=== PATIENT | male | born 1975 | race Caucasian/White ===

== ENCOUNTER 2024-10-01 16:58 | Inpatient (IN) | payer OTHER, SELFPAY ==
[2024-10-01] VITALS (7 sets, daily range): BP systolic 131–158; BP diastolic 82–101; PULSE 69–101; RESP 14–16; TEMP 36.1; O2SAT 97–100; BMI 21.1
--- NOTE | 2024-10-01 18:05 | CT_ITS ---
STUDY: CT ABDOMEN AND PELVIS WITH CONTRAST REASON FOR EXAM: Male, 49 years old. Abdominal pain. History of colon cancer and pancreatic cancer with the recent bile duct stent. RADIATION DOSAGE (If Supplied By Facility): CTDIvol = ( 10.98 ) mGy, DLP = ( 667.90 ) mGycm TECHNIQUE: Transaxial images were obtained from the dome of the diaphragm to the symphysis pubis without oral contrast. IV 100mL Isovue-370 was administered. Sagittal and coronal images were reconstructed. Individualized dose optimization techniques were used for this CT. COMPARISON: None. FINDINGS: The visualized lung bases are unremarkable. The visualized portions of the heart are within normal limits. Normal shape and size of the liver. Tiny amounts of intrabiliary air related to the common bile duct stent which is in grossly satisfactory position and terminating in the proximal duodenum. Gallbladder is distended and filled with high density material from previous contrast administration. Abnormal ill-defined low-attenuation mass of the head of the pancreas measuring as much as 5.1 x 5.0 x 4.4 cm. Normal spleen. Normal bilateral adrenal glands. Normal right kidney. Normal left kidney. Evaluation of the GI tract is limited by absence of oral contrast. Cannot exclude stomach wall thickening. Diffuse fluid distention of the small bowel. Measuring as much as 5.6 cm across. Findings are consistent with small bowel obstruction related to what appears to be amorphous, slightly stellate probably locally infiltrating soft tissue mass directly at the level of the ileocecal valve. This is very difficult to measure but is approximately 4.5 x 5.7 x 4.3 cm across and suspicious for malignancy of the cecum directly at the ileocecal valve. Correlate with colonoscopy. Appendix is not seen. Normal abdominal aorta. Normal inferior vena cava. Normal retroperitoneum. Normal urinary bladder. Normal abdominal wall. Normal osseous structures. 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 Additional probable 5.1 cm mass of the pancreatic head. Common bile duct stent in grossly satisfactory position. Electronically Signed: Rashad Walls MD at 19:32 EDT ,
--- NOTE | 2024-10-01 18:06 | EDS_ITS ---
HPI HPI - GI History of Present Illness Chief Complaint: Abd Pain Informant: patient Abdominal Pain/Flank Pain Onset: Today Context: Gradual Onset Timing: Continuous Quality: Cramping Location: Diffuse Worsened by: Nothing Relieved by: Nothing Nausea/Vomiting/Emesis GI Symptom: Positive for Nausea and Vomiting Quality: Positive for Nonbilious; Negative for Blood streaks, Coffee ground or Hematemesis Diarrhea/Melena/Hematochezia GI Symptom: Negative for Diarrhea, Melena or Hematochezia Associated Symptoms Associated Symptoms: Negative for Dysuria, Frequency or Hematuria Narrative Narrative: Patient presents with abdominal pain that began today. Patient states it is g radually gotten worse throughout the day. Patient states that when he woke up he was feeling okay. Patient states he ate a breakfast sandwich. Patient states he had a bowel movement this morning. Patient states that he has not had a bowel movement since that time. Patient states that recently he has had several about once per day for the past few weeks. Patient states his pain is diffuse and cramping. Patient admits to some nausea and vomiting. Patient denies any hematemesis or coffee-ground emesis. Patient denies any biliary emesis. Patient denies any diarrhea, melena, or hematochezia. Patient denies any dysuria, frequency, or hematuria. Patient had a recent stent placed in his biliary duct because of pancreatic cancer. Patient contacted his oncologist, Dr. Cano who referred him to the emergency department for possible bowel obstruction or migration of the biliary stent. [facility] Medical History Pancreatic cancer Colon cancer Home Medications ?Medication ?Instructions ?Recorded ?Last Taken ?Type [id number] 2 cap PO TID 10/01/24 Unknown History 36,000-114,000-180,000 unit capsule,delay rel (Creon) Allergy/AdvReac Type Severity Reaction Status Date / Time No Known Allergies Allergy Verified 10/01/24 16:59 Social History Smoking Status: Unknown if ever smoked ROS ROS ED Constitutional Constitutional ED: Denies chills or fever(s) Eyes Eyes: Denies blurry vision or change in vision ENT ENT ED: Denies rhinorrhea or sore throat Cardiovascular Cardiovascular: Denies chest pain or palpitations Respiratory/Chest Respiratory/Chest: Denies cough or dyspnea Gastrointestinal Gastrointestinal: Reports abdominal pain, nausea and vomiting; Denies diarrhea Genitourinary Genitourinary ED: Denies dysuria or hematuria Musculoskeletal Musculoskeletal: Denies back pain or neck pain Integumentary Denies abscess or rash Neurologic Neurologic: Denies headache(s) or weakness Allergic/Immunologic Allergic/Immunologic ED: Denies mouth swelling or urticaria EXAM Physical Exam Const Vital Signs: 10/01/24 16:59 10/01/24 18:15 10/01/24 19:08 Temperature 96.9 F L Temperature Source Temporal Pulse Rate 101 H 76 80 Respiratory Rate 16 14 16 Blood Pressure 152/91 H 141/96 H 158/92 H Blood Pressure Mean 111 111 114 Pulse Ox 99 97 100 Oxygen Delivery Method Room Air Room Air 10/01/24 19:54 10/01/24 20:56 10/01/24 21:51 Temperature Temperature Source Pulse Rate 85 78 85 Respiratory Rate 16 15 16 Blood Pressure 158/82 H 148/101 H 145/95 H Blood Pressure Mean 107 116 111 Pulse Ox 97 98 98 Oxygen Delivery Method Room Air Room Air Room Air 10/01/24 22:57 Temperature Temperature Source Pulse Rate 69 Respiratory Rate 16 Blood Pressure 131/88 H Blood Pressure Mean 102 Pulse Ox 98 Oxygen Delivery Method Room Air Positive well nourished and well developed General Appearance ED: well developed and NAD HEENT Reports moist mucous membranes normocephalic Eyes General Eye ED: Yes scleral icterus Neck supple and no JVD Resp normal respiratory effort and clear to auscultation bilaterally Cardio regular rate and regular rhythm GI Auscultation: hypoactive bowel sounds Palpation: soft and tender epigastric, LLQ, RLQ, LUQ, RUQ and suprapubic; Negative for guarding or rebound tenderness present Neuro CN's II-XII intact bilaterally, moves all extremities and no sensory deficits noted Sensorium / Orientation: alert Motor Exam: strength 5/5 throughout Psych mental status grossly normal and thought process normal MDM MDM MDM Narrative Medical decision making narrative: Differential diagnosis includes bowel obstruction, perforation, biliary obstruction, gastroenteritis, urinary tract infection, and pyelonephritis. CBC will be obtained to assess for leukocytosis and anemia. Comprehensive metabolic profile will be obtained to assess for hepatic function, renal function, and electrolyte abnormality. Lipase will be obtained to assess for pancreatitis. Serum lactate will be obtained to assess for sepsis. CT scan of the abdomen pelvis will be obtained to assess for bowel obstruction and perforation. Lab Data Attestation: I reviewed the patient's lab results. Lab results narrative: CBC was reviewed. White blood cell count was 18.0. Platelets were slightly elevated at 490. Comprehensive metabolic profile was reviewed. Total bilirubin was 2.8. Alkaline phosphatase was 204 and glucose was slightly elevated at 132. The remainder was essentially within normal limits. Lipase was reviewed and was less than 10. Labs: Laboratory Results - last 24 hr 10/01/24 10/01/24 17:40 18:55 WBC 18.0 H RBC 5.13 Hgb 14.7 Hct 44.9 MCV 87.5 MCH 28.7 MCHC 32.7 RDW Std Deviation 52.8 H RDW Coeff of Soha 16.4 H Plt Count 490 H MPV 9.6 Immature Gran % (Auto) 0.800 Neut % (Auto) 84.6 H Lymph % (Auto) 7.6 L [place] % (Auto) 5.8 Eos % (Auto) 0.6 Baso % (Auto) 0.6 Absolute Neuts (auto) 15.2 H Absolute Lymphs (auto) 1.36 Nucleated RBC % 0 Sodium 136 Potassium 4.0 Chloride 102 Carbon Dioxide 25.0 Anion Gap 8 BUN 20 H Creatinine 0.69 L Estim Creat Clear Calc 119.78 Est GFR (MDRD) Af Amer 155 Est GFR (MDRD) Non-Af 128 BUN/Creatinine Ratio 28.9 H Glucose 132 H Lactic Acid 2.5 H* Calcium 10.4 H Total Bilirubin 2.80 H AST 30 ALT 46 Alkaline Phosphatase 204 H Total Protein 8.4 H Albumin 3.7 Globulin 4.7 H Albumin/Globulin Ratio 0.8 L Lipase < 10 L Radiography Diagnostic Testing: Clinical Impression(s) from Imaging Studies Abdomen/Pelvis CT 10/01/24 18:05 IMPRESSION: Small bowel obstruction apparently related to an 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 Additional probable 5.1 cm mass of the pancreatic head. Common bile duct stent in grossly satisfactory position. Electronically Signed: Rashad Walls MD at 19:32 EDT , KUB X-Ray 10/01/24 20:25 IMPRESSION: undefined CT scan of the abdomen pelvis was obtained. There is a small bowel obstruction at the ileocecal region. There is a 5.1 cm mass at the pancreatic head. The common bile duct stent is in satisfactory position. This was interpreted by the radiologist and was also independently reviewed by myself. Management Discussion w/another healthcare provider: Car Repossessor Treatment and Re-Evaluation :: Patient was given IV fluids, morphine, and Zofran. Patient was feeling better on reevaluation. Patient was advised of his findings. Patient was advised of the need for nasogastric tube placement. Patient is agreeable with this. This was ordered. Case was discussed with Dr. Cano from oncology. He recommended transferring the patient to the [facility] for colorectal surgery. Case was discussed with [facility] transfer line. Patient was accepted to the service of Dr. Gray from hepatobiliary surgery. Patient will be transferred there when a bed is available and assigned. Patient and family understood and are agreeable with the plan. All questions were answered. Discharge Plan Triage Chief Complaint: Abd Pain ED Provider: Ernst Tovar Dx/Rx/DC Orders Clinical Impression: Small bowel obstruction, Pancreatic cancer, Colon cancer Prescriptions: No Action Creon 36,000-114,000- 180,000 unit capsule,delayed release(DR/EC) 2 cap PO TID Primary Care Provider: Erick Cano Referrals: Erick Cano DO [Primary Care Provider] - Print Language: Bulgarian Disposition Disposition: Acute Care Hospital Discharge Location: [facility]
[2024-10-01] MEDS: Ondansetron 4 MG/2 ML Vial IV (18:12)
[2024-10-01] MEDS: Morphine 4 MG/ML Syringe IV ×2 (18:12→23:29)
[2024-10-01] MEDS: 0.9% Normal Saline (1000mL) 1,000 ML 999 ML IV (18:12)
[2024-10-01 18:31] LABS: Absolute Lymphocyte Count 1.36 X10^3/uL (0.83-4.51); Absolute Neutrophil Count 15.2 X10^3/uL (2.0-7.7); Basophil# 0.11 X10^3/uL; Basophil% 0.6 % (0-1); Eosinophils% 0.6 % (0-5); Hematocrit 44.9 % (40-54); Hemoglobin 14.7 g/dL (13.0-16.5); Lymphocyte # 1.36 X10^3/ul (0.83-4.51); Lymphocyte % 7.6 % (19-41); Mean Corp Hgb Conc 32.7 g/dL (32-36); Mean Corpuscular Hgb 28.7 pg (27.0-32.0); Mean Corpuscular Volume 87.5 fL (80-94); Mean Platelet Vol. 9.6 fl (6.2-12.0); Monocyte# 1.04 X10^3/uL; Monocyte% 5.8 % (0-10); NRBC Flagged by Analyzer 0 % (0-5); Neutrophil # 15.23 X10^3/uL (2.7-7.7); Neutrophil % 84.6 % (47-70); Platelet Count 490 K/mm3 (150-450); RBC Distribution Width CV 16.4 % (11.6-14.6); RBC Distribution Width SD 52.8 fl (35.1-43.9); Red Blood Count 5.13 M/mm3 (4.6-6.2)
[2024-10-01 18:40] LABS: ALB/GLOB Ratio 0.8 RATIO (0.9-2.4); AST(SGOT) 30 U/L (15-37); Alanine Aminotransfer ALT/SGPT 46 U/L (16-61); Albumin, Serum 3.7 g/dL (3.2-5.0); Alkaline Phosphatase 204 U/L (45-117); Anion Gap 8 (5-15); BUN 20 mg/dL (7-18); BUN/Creat Ratio 28.9 RATIO (10-20); Calcium,Total 10.4 mg/dL (8.5-10.1); Chloride 102 mmol/L (98-107); Creatinine, Serum 0.69 mg/dL (0.70-1.30); EST Glomerular Filtration Rate 128 mL/min (>60); Est Glom Filt Rate - Afr Amer 155 mL/min (>60); Estimated Creatinine Clearance 119.78 ml/min; Globulin 4.7 g/dL (2.2-4.2); Glucose 132 mg/dL (74-106); Lipase < 10 U/L (13-75); Protein, Total 8.4 g/dL (6.4-8.2); Sodium Level 136 mmol/L (136-145)
[2024-10-01 20:12] LABS: Lactic Acid 2.5 mmol/L (0.4-1.9)
--- NOTE | 2024-10-01 20:25 | RAD_ITS ---
STUDY: X-RAY - ABDOMEN/PELVIS REASON FOR EXAM: Male, 49 years old. NG Insertion TECHNIQUE: Single AP view of the abdomen / pelvis. COMPARISON: None. FINDINGS: Normal visualized lung bases. Nasogastric tube terminates in the fundus of the stomach. There is an unremarkable bowel gas pattern. There is no demonstrated free abdominal air. Electronically Signed: Rashad Walls MD at 21:03 EDT , RAD/Abdomen Single View (Portable) IMPRESSION: undefined
[2024-10-01 22:59] LABS: Reflex Lactate? Y
[2024-10-01 23:55] LABS: Lactic Acid 1.2 mmol/L (0.4-1.9)
[2024-10-02] VITALS (15 sets, daily range): BP systolic 107–133; BP diastolic 76–92; PULSE 56–83; RESP 16–20; TEMP 36.4–37.2; O2SAT 93–100; BMI 20.9
--- NOTE | 2024-10-02 02:15 | ED.RN ---
[facility] main called, per transfer center, pt should have a bed in the morning, pending discharges.
--- NOTE | 2024-10-02 07:37 | ED.RN ---
Pt is doing ok. He asked about having water. Pt was given mouth swabs. Denies any further needs. Pt updated on bed status.
--- NOTE | 2024-10-02 07:57 | ED.RN ---
called to get an update. She will be calling [facility] to see how much longer for a bed.
[2024-10-02 08:21] LABS: Absolute Lymphocyte Count 1.81 X10^3/uL (0.83-4.51); Absolute Neutrophil Count 4.6 X10^3/uL (2.0-7.7); Basophil# 0.07 X10^3/uL; Basophil% 0.9 % (0-1); Eosinophil# 0.19 X10^3/uL; Eosinophils% 2.5 % (0-5); Hematocrit 41.2 % (40-54); Hemoglobin 13.3 g/dL (13.0-16.5); Lymphocyte # 1.81 X10^3/ul (0.83-4.51); Lymphocyte % 23.5 % (19-41); Mean Corp Hgb Conc 32.3 g/dL (32-36); Mean Corpuscular Hgb 28.7 pg (27.0-32.0); Mean Corpuscular Volume 88.8 fL (80-94); Mean Platelet Vol. 9.3 fl (6.2-12.0); Monocyte# 0.98 X10^3/uL; Monocyte% 12.7 % (0-10); NRBC Flagged by Analyzer 0 % (0-5); Neutrophil # 4.62 X10^3/uL (2.7-7.7); Neutrophil % 60.1 % (47-70); Platelet Count 430 K/mm3 (150-450); RBC Distribution Width CV 16.4 % (11.6-14.6); RBC Distribution Width SD 53.8 fl (35.1-43.9); Red Blood Count 4.64 M/mm3 (4.6-6.2); White Blood Count 7.7 K/mm3 (4.4-11.0)
[2024-10-02 08:47] LABS: ALB/GLOB Ratio 0.8 RATIO (0.9-2.4); AST(SGOT) 27 U/L (15-37); Alanine Aminotransfer ALT/SGPT 40 U/L (16-61); Albumin, Serum 3.1 g/dL (3.2-5.0); Alkaline Phosphatase 170 U/L (45-117); Anion Gap 6 (5-15); BUN 21 mg/dL (7-18); BUN/Creat Ratio 41.2 RATIO (10-20); Calcium,Total 9.1 mg/dL (8.5-10.1); Chloride 108 mmol/L (98-107); Creatinine, Serum 0.51 mg/dL (0.70-1.30); EST Glomerular Filtration Rate 182 mL/min (>60); Est Glom Filt Rate - Afr Amer 220 mL/min (>60); Estimated Creatinine Clearance 162.05 ml/min; Globulin 3.9 g/dL (2.2-4.2); Glucose 103 mg/dL (74-106); Lipase < 10 U/L (13-75); Potassium 4.2 mmol/L (3.5-5.1); Sodium Level 140 mmol/L (136-145)
[2024-10-02] MEDS: Morphine 4 MG/ML Syringe IV (09:15)
--- NOTE | 2024-10-02 09:58 | PCM.HP.STD ---
HPI - General General Date of Admission: 10/02/24 Date of Service: 10/02/24 Chief Complaint: abdominal pain HPI Narrative ISABELLE WILEY, is a 49 M with a PMH as outlined including pancreatic cancer and recently had a stent placed who presented to the ED On 10/02/2024 with a complaint of abdominal pain which started on the day of admission. Abdominal pain was diffuse and cramping, with associated nausea and vomiting. He had a bowel movement before the symptoms started but has not passed gas or had a BM since. Review of systems is otherwise negative. He has never had such symptoms before. He was diagnosed with pancreatic and colon cancer 3 weeks ago and follows up with Dr Dias. He says he is yet to start chemotherapy. Vitals in the ED were BP of 107/76, NM of 78, RR of 20, temp of 98.9F and oxygen sats of 95% on room air. CBC showed Hb of 13.3, wbc of 7.7 and platelets of 430. Chemistry showed sodium of 140, potassium of 4.2 and Cr of 0.51. Total bilirubin of 2.3. CT abdomen and pelvis showed small bowel obstruction apparently related to an amorphous, locally infiltrating probably malignant mass of the ileocecal region and an additional. probable 5.1cm mass of th pancreatic head, with the common bile duct stent in a grossly satisfactory position. His oncologist recommended transfer to [facility] where he was accepted pending bed availability. After being down in the ED for about 18 hours, he was admitted to the hospitalist service with consult to general surgery also awaiting transfer to [facility]. [facility] Medical History Pancreatic cancer Colon cancer Home Medications ?Medication ?Instructions ?Recorded ?Last Taken ?Type [id number] 2 cap PO TID 10/01/24 Unknown History 36,000-114,000-180,000 unit capsule,delay rel (Creon) Allergy/AdvReac Type Severity Reaction Status Date / Time No Known Allergies Allergy Verified 10/01/24 16:59 Social History Smoking Status: Unknown if ever smoked ROS Constitutional Constitutional: Reports fatigue, malaise and weakness; Denies anorexia, chills or fever(s) Eyes Eyes: Denies change in vision ENT HEENT: Denies dysphagia, headache(s) or sore throat Cardiovascular Cardiovascular: Denies chest pain, dyspnea on exertion, edema, lightheadedness, orthopnea, palpitations, paroxysmal nocturnal dyspnea or rapid heart rate Respiratory/Chest Respiratory/Chest: Denies cough, dyspnea, shortness of breath at rest or shortness of breath with exertion Gastrointestinal Gastrointestinal: Reports abdominal pain, nausea and vomiting; Denies constipation, diarrhea, dyspepsia, hematemesis, hematochezia, loose stools or melena Genitourinary Genitourinary: Denies burning urination or dysuria Musculoskeletal Musculoskeletal: Denies back pain, joint stiffness or joint swelling Neurologic Neurologic: Denies confusion, dizziness, focal weakness, headache(s), seizures or syncope Psychiatric Psychiatric: Denies anxiety or depression Vital Signs Vital Signs Vital Signs: 10/01/24 16:59 10/01/24 18:15 10/01/24 19:08 Temperature 96.9 F L Temperature Source Temporal Pulse Rate 101 H 76 80 Respiratory Rate 16 14 16 Blood Pressure 152/91 H 141/96 H 158/92 H Blood Pressure Mean 111 111 114 Pulse Ox 99 97 100 Oxygen Delivery Method Room Air Room Air 10/01/24 19:54 10/01/24 20:56 10/01/24 21:51 Temperature Temperature Source Pulse Rate 85 78 85 Respiratory Rate 16 15 16 Blood Pressure 158/82 H 148/101 H 145/95 H Blood Pressure Mean 107 116 111 Pulse Ox 97 98 98 Oxygen Delivery Method Room Air Room Air Room Air 10/01/24 22:57 10/02/24 00:00 10/02/24 01:00 Temperature Temperature Source Pulse Rate 69 80 83 Respiratory Rate 16 16 16 Blood Pressure 131/88 H 125/84 H 114/82 H Blood Pressure Mean 102 97 92 Pulse Ox 98 93 93 Oxygen Delivery Method Room Air Room Air Room Air 10/02/24 02:00 10/02/24 03:00 10/02/24 04:00 Temperature Temperature Source Pulse Rate 63 65 63 Respiratory Rate 16 16 16 Blood Pressure 113/81 H 123/82 H 133/92 H Blood Pressure Mean 91 95 105 Pulse Ox 97 97 97 Oxygen Delivery Method Room Air Room Air Room Air 10/02/24 05:00 10/02/24 06:00 10/02/24 07:00 Temperature Temperature Source Pulse Rate 60 74 70 Respiratory Rate 16 16 16 Blood Pressure 109/86 H 112/88 H 132/85 H Blood Pressure Mean 93 96 100 Pulse Ox 96 94 94 Oxygen Delivery Method Room Air Room Air Room Air 10/02/24 07:58 10/02/24 09:14 Temperature Temperature Source Pulse Rate 72 61 Respiratory Rate 16 16 Blood Pressure 122/82 H 125/86 H Blood Pressure Mean 95 99 Pulse Ox 97 98 Oxygen Delivery Method Room Air Room Air Weight Weight: 147 lb 6.4 oz Body Mass Index (BMI) 21.1 Physical Exam Const alert, oriented x3 and no apparent distress General Appearance: cooperative HEENT normocephalic, head/scalp atraumatic and oropharynx normal HEENT Narrative: dry oral mucosal membranes, NG tube in situ Eyes PERRL, EOMs intact bilaterally and conjunctivae normal Neck no lymphadenopathy and supple Resp normal respiratory effort, no retractions and clear to auscultation bilaterally Cardio regular rate, regular rhythm, S1 normal heart sound, S2 normal heart sound and no murmurs GI normal to inspection, nondistended, normoactive bowel sounds, soft to palpation, non-tender and non-distended GI Narrative: NG tube in situ draining dark reddish fluid Extremity normal to inspection, full ROM and no clubbing, cyanosis or edema Neuro oriented x3, CN's II-XII intact bilaterally and no focal motor deficits Sensorium / Orientation: awake and alert Motor Exam: strength 5/5 throughout Psych affect normal Results Lab / Micro Data 10/02/24 08:10 10/02/24 08:10 Labs: Laboratory Results - last 24 hr 10/01/24 17:40: WBC 18.0 H, RBC 5.13, Hgb 14.7, Hct 44.9, MCV 87.5, MCH 28.7, MCHC 32.7, RDW Std Deviation 52.8 H, RDW Coeff of Soha 16.4 H, Plt Count 490 H, MPV 9.6, Immature Gran % (Auto) 0.800, Neut % (Auto) 84.6 H, Lymph % (Auto) 7.6 L, [place] % (Auto) 5.8, Eos % (Auto) 0.6, Baso % (Auto) 0.6, Absolute Neuts (auto) 15.2 H, Absolute Lymphs (auto) 1.36, Nucleated RBC % 0, Sodium 136, Potassium 4.0, Chloride 102, Carbon Dioxide 25.0, Anion Gap 8, BUN 20 H, Creatinine 0.69 L, Estim Creat Clear Calc 119.78, Est GFR (MDRD) Af Amer 155, Est GFR (MDRD) Non-Af 128, BUN/Creatinine Ratio 28.9 H, Glucose 132 H, Calcium 10.4 H, Total Bilirubin 2.80 H, AST 30, ALT 46, Alkaline Phosphatase 204 H, Total Protein 8.4 H, Albumin 3.7, Globulin 4.7 H, Albumin/Globulin Ratio 0.8 L, Lipase < 10 L 10/01/24 18:55: Lactic Acid 2.5 H* 10/01/24 23:28: Lactic Acid 1.2 10/02/24 08:10: WBC 7.7, RBC 4.64, Hgb 13.3, Hct 41.2, MCV 88.8, MCH 28.7, MCHC 32.3, RDW Std Deviation 53.8 H, RDW Coeff of Soha 16.4 H, Plt Count 430, MPV 9.3, Immature Gran % (Auto) 0.300, Neut % (Auto) 60.1, Lymph % (Auto) 23.5, [place] % (Auto) 12.7 H, Eos % (Auto) 2.5, Baso % (Auto) 0.9, Absolute Neuts (auto) 4.6, Absolute Lymphs (auto) 1.81, Nucleated RBC % 0, Sodium 140, Potassium 4.2, Chloride 108 H, Carbon Dioxide 27.0, Anion Gap 6, BUN 21 H, Creatinine 0.51 L, Estim Creat Clear Calc 162.05, Est GFR (MDRD) Af Amer 220, Est GFR (MDRD) Non-Af 182, BUN/Creatinine Ratio 41.2 H, Glucose 103, Lactic Acid 1.0, Calcium 9.1, Total Bilirubin 2.30 H, AST 27, ALT 40, Alkaline Phosphatase 170 H, Total Protein 7.0, Albumin 3.1 L, Globulin 3.9, Albumin/Globulin Ratio 0.8 L, Lipase < 10 L Imaging Radiology Impression Abdomen/Pelvis CT 10/01/24 18:05 IMPRESSION: Small bowel obstruction apparently related to an 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 Additional probable 5.1 cm mass of the pancreatic head. Common bile duct stent in grossly satisfactory position. Electronically Signed: Rashad Walls MD at 19:32 EDT , KUB X-Ray 10/01/24 20:25 IMPRESSION: undefined Assessment & Plan Assessment/Plan (1) Small bowel obstruction: (2) Colon cancer: (3) Pancreatic cancer: PLAN: Plan #Small bowel obstruction Admitted with a complaint of abdominal pain. He has not passed gas or had a bowel movement since his symptoms started the day prior admission. He was diagnosed with colon and pancreatic cancer about 3 weeks ago and has had a stent placed in the common bile duct. He is here to start chemotherapy. CT of the abdomen and pelvis done admission showed a small bowel obstruction generally related to an amorphous locally infiltrating probably malignant mass in the ileocecal region and additional probable 5.1 cm mass of the pancreatic head with a common bile duct and a grossly satisfactory position He has been accepted at [facility] [place] but there is no bed availability. consult general surgery keep NPO for now. hydrate with IVF NS @ 125cc/hr #Colon and pancreatic cancer recently diagnosed follows with Dr Dias. Has had a stent inserted in the common bile duct. awaiting transfer to [facility] #Nicotine dependence: says he quit about a month ago. Counseled to continue abstinence from nicotine DVT prophylaxis: lovenox Code status: full code Patient counseled extensively about different types of CODE STATUS including full code, DNR CCA and DNR CCA. Patient elects to be full code. Total [id number] time 16 mins Charges/Coding Visit Charges Inpatient E&M: 81848 Init Hosp L3 Procedures Hospitalists Procedures: 32079 Advncd Care Plan 30 Min
--- NOTE | 2024-10-02 11:45 | CON.PCM.SX_ITS ---
Assessment & Plan Assessment/Plan (1) Small bowel obstruction: (2) Colon cancer: (3) Pancreatic cancer: PLAN: Plan Continue n.p.o./NG and IV fluids await transfer bed. Patient has been accepted to [facility]--patient did have a small amount of flatus as well as small bowel movement however given a look at the CAT scan I do not think that his overall issue is resolved and he will still need surgery or this will happen again in the near future. Recommend Protonix 80 mg IV x 1 and then 40 mg daily afterwards as I am thinking the NG output change could be due to irritation from the NG. Okay for ice chips as all come back out of the NG. Nga Ventura M.D. Pager: [phone] [facility] [address] [place] [address], [facility], [address] [place] [address] Office: [phone] HPI Consult Data Date of Consult: 10/02/24 HPI Narrative HPI Narrative: ISABELLE WILEY, is a 49 M who admitted after coming to the ER yesterday due to increased abdominal pain. Patient CT abdomen pelvis that showed a bowel obstruction likely due to mass near the ileocecal valve. 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 Patient did have an NG placed in the ER. Patient has had his entire workup at [facility]. Patient is on a wait list for a bed at [facility] currently. However patient currently does not have a bed as he has been admitted. Patient currently has no abdominal pain. Much improved with NG. Currently NG looks to be a little bloody with clots. Patient denies any history of heartburn or reflux. Patient states he is having small amount of flatus and had a small bowel movement. [facility] Medical History Pancreatic cancer Colon cancer Home Medications ?Medication ?Instructions ?Recorded ?Last Taken ?Type vetygf-ukusucwu-[id number] 2 cap PO TID Food breakdown 10/01/24 10/01/24 History 36,000-114,000-180,000 unit capsule,delay rel (Creon) Allergy/AdvReac Type Severity Reaction Status Date / Time No Known Allergies Allergy Verified 10/01/24 16:59 Social History Smoking Status: Current every day smoker tobacco type: cigarettes ROS Constitutional Constitutional: Reports anorexia Eyes Eyes: Denies blurry vision ENT HEENT: Denies dysphagia Cardiovascular Cardiovascular: Denies chest pain Respiratory/Chest Respiratory/Chest: Denies productive cough Gastrointestinal Gastrointestinal: Reports abdominal pain, bloating and nausea; Denies rectal bleeding Genitourinary Genitourinary: Denies dysuria Musculoskeletal Musculoskeletal: Denies joint swelling Integumentary Integumentary: Reports jaundice Neurologic Neurologic: Denies focal weakness Psychiatric Psychiatric: Denies anxiety Endocrine Endocrinology: Denies palpitations Hematologic/Lymphatic Hematologic/Lymphatic: Denies easy bleeding Physical Exam Narrative NG in place small clots and drainage reddish in color Const alert, oriented x3 and no apparent distress HEENT normocephalic and head/scalp atraumatic Resp normal respiratory effort Cardio regular rate GI soft to palpation and non-tender; Negative for non-distended Palpation: Negative for guarding Extremity no clubbing, cyanosis or edema Skin Skin Narrative: jaundice Neuro CN's II-XII intact bilaterally Psych mental status grossly normal Lab / Micro Data 10/02/24 08:10 10/02/24 08:10 Labs: Laboratory Results - last 24 hr 10/01/24 17:40: WBC 18.0 H, RBC 5.13, Hgb 14.7, Hct 44.9, MCV 87.5, MCH 28.7, MCHC 32.7, RDW Std Deviation 52.8 H, RDW Coeff of Soha 16.4 H, Plt Count 490 H, MPV 9.6, Immature Gran % (Auto) 0.800, Neut % (Auto) 84.6 H, Lymph % (Auto) 7.6 L, [place] % (Auto) 5.8, Eos % (Auto) 0.6, Baso % (Auto) 0.6, Absolute Neuts (auto) 15.2 H, Absolute Lymphs (auto) 1.36, Nucleated RBC % 0, Sodium 136, Potassium 4.0, Chloride 102, Carbon Dioxide 25.0, Anion Gap 8, BUN 20 H, Creatinine 0.69 L , Estim Creat Clear Calc 119.78, Est GFR (MDRD) Af Amer 155, Est GFR (MDRD) Non- Af 128, BUN/Creatinine Ratio 28.9 H, Glucose 132 H, Calcium 10.4 H, Total Bilirubin 2.80 H, AST 30, ALT 46, Alkaline Phosphatase 204 H, Total Protein 8.4 H, Albumin 3.7, Globulin 4.7 H, Albumin/Globulin Ratio 0.8 L, Lipase < 10 L 10/01/24 18:55: Lactic Acid 2.5 H* 10/01/24 23:28: Lactic Acid 1.2 10/02/24 08:10: WBC 7.7, RBC 4.64, Hgb 13.3, Hct 41.2, MCV 88.8, MCH 28.7, MCHC 32.3, RDW Std Deviation 53.8 H, RDW Coeff of Soha 16.4 H, Plt Count 430, MPV 9.3, Immature Gran % (Auto) 0.300, Neut % (Auto) 60.1, Lymph % (Auto) 23.5, [place] % (Auto) 12.7 H, Eos % (Auto) 2.5, Baso % (Auto) 0.9, Absolute Neuts (auto) 4.6, Absolute Lymphs (auto) 1.81, Nucleated RBC % 0, Sodium 140, Potassium 4.2, C hloride 108 H, Carbon Dioxide 27.0, Anion Gap 6, BUN 21 H, Creatinine 0.51 L, Estim Creat Clear Calc 162.05, Est GFR (MDRD) Af Amer 220, Est GFR (MDRD) Non-Af 182, BUN/Creatinine Ratio 41.2 H, Glucose 103, Lactic Acid 1.0, Calcium 9.1, T otal Bilirubin 2.30 H, AST 27, ALT 40, Alkaline Phosphatase 170 H, Total Protein 7.0, Albumin 3.1 L, Globulin 3.9, Albumin/Globulin Ratio 0.8 L, Lipase < 10 L Imaging Radiology Impression Abdomen/Pelvis CT 10/01/24 18:05 IMPRESSION: Small bowel obstruction apparently related to an 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 Additional probable 5.1 cm mass of the pancreatic head. Common bile duct stent in grossly satisfactory position. Electronically Signed: Rashad Walls MD at 19:32 EDT , [facility] X-Ray 10/01/24 20:25 IMPRESSION: undefined
[2024-10-02] MEDS: 0.9% Saline Lock 10 ML Syringe IV (12:20)
[2024-10-02] MEDS: 0.9% Normal Saline (1000mL) 1,000 ML 125 ML IV ×2 (12:20→20:15)
--- NOTE | 2024-10-02 14:23 | CHAPLAIN ---
Type of Pastoral Visit _x__ Initial Visit ___ Follow-up Visit ___ On-call Visit ___ General Patient Visit ___ Spiritual Assessment ___ Family Conference ___ Bereavement ___ Rapid Response ___ Code Blue ___ Other (describe below) Pastoral Care Referral From _x__ Patient ___ Family ___ Nurse ___ Physician ___ Snuff Packing Machine Operator ___ Choir Teacher ___ Other (describe below) Sacrament/Intervention ___ Active listening ___ Anointing ___ Rastafari ___ Bereavement ___ Communion ___ Alda exploration ___ ___ Life review ___ Prayer ___ Reconciliation ___ Sacrament of Sick _x__ Supportive presence ___ Wedding ___ Other (describe below) Pastoral Comments patient was awake and welcomed this doormaker; pt states that he is fine and that it is hard for him to talk at this time; offer of presence and brief review of any needs or concerns; pt denies any needs but talks about the possibility of having a surgery done here rather than being transferred which he said he is anxiously awaiting the answer; pt states that his parents were already here for a visit and again states that he is doing fine
[2024-10-02] MEDS: Pantoprazole Sodium 80 MG in 0.9% Normal Saline (50mL Bag) 15 ML 420 MG IV BOLUS (16:20)
[2024-10-02] MEDS: BENZOCAINE/MENTHOL 1 LOZENGE 2 LOZENGE MUCOUS MEM ×2 (16:27→20:07)
[2024-10-03 00:53] VITALS: BP 128/94; PULSE 56; RESP 16; TEMP 36.4; O2SAT 99
[2024-10-03] MEDS: BENZOCAINE/MENTHOL 1 LOZENGE 2 LOZENGE MUCOUS MEM ×3 (01:00→18:53)
[2024-10-03 04:46] LABS: Absolute Lymphocyte Count 1.85 X10^3/uL (0.83-4.51); Absolute Neutrophil Count 4.2 X10^3/uL (2.0-7.7); Basophil# 0.06 X10^3/uL; Basophil% 0.8 % (0-1); Eosinophil# 0.29 X10^3/uL; Eosinophils% 4.1 % (0-5); Hematocrit 37.6 % (40-54); Hemoglobin 12.1 g/dL (13.0-16.5); Lymphocyte # 1.85 X10^3/ul (0.83-4.51); Mean Corp Hgb Conc 32.2 g/dL (32-36); Mean Corpuscular Hgb 29.2 pg (27.0-32.0); Mean Corpuscular Volume 90.8 fL (80-94); Mean Platelet Vol. 9.4 fl (6.2-12.0); Monocyte# 0.68 X10^3/uL; Monocyte% 9.6 % (0-10); NRBC Flagged by Analyzer 0 % (0-5); Neutrophil # 4.21 X10^3/uL (2.7-7.7); Neutrophil % 59.2 % (47-70); Platelet Count 344 K/mm3 (150-450); RBC Distribution Width CV 16.1 % (11.6-14.6); RBC Distribution Width SD 54.1 fl (35.1-43.9); Red Blood Count 4.14 M/mm3 (4.6-6.2); White Blood Count 7.1 K/mm3 (4.4-11.0)
[2024-10-03 05:12] LABS: ALB/GLOB Ratio 0.8 RATIO (0.9-2.4); AST(SGOT) 23 U/L (15-37); Alanine Aminotransfer ALT/SGPT 37 U/L (16-61); Albumin, Serum 2.8 g/dL (3.2-5.0); Alkaline Phosphatase 137 U/L (45-117); Anion Gap 5 (5-15); BUN 18 mg/dL (7-18); BUN/Creat Ratio 37.2 RATIO (10-20); Calcium,Total 8.6 mg/dL (8.5-10.1); Chloride 109 mmol/L (98-107); Creatinine, Serum 0.48 mg/dL (0.70-1.30); EST Glomerular Filtration Rate 193 mL/min (>60); Est Glom Filt Rate - Afr Amer 234 mL/min (>60); Estimated Creatinine Clearance 170.22 ml/min; Globulin 3.4 g/dL (2.2-4.2); Glucose 83 mg/dL (74-106); Potassium 3.9 mmol/L (3.5-5.1); Protein, Total 6.2 g/dL (6.4-8.2); Sodium Level 141 mmol/L (136-145)
[2024-10-03 05:21] VITALS: BP 142/95; PULSE 54; RESP 16; TEMP 36.6; O2SAT 97
[2024-10-03 07:46] VITALS: PULSE 60
--- NOTE | 2024-10-03 08:49 | PN.SURG_ITS ---
Subjective Subjective Patient's drainage does not have any further clots and it. 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 Patient is taking ice chips. Patient still denies abdominal pain. He still having some flatus and small bowel movements. Objective Data Objective Data Vital Signs: Vital Signs Temp Pulse Resp BP Pulse Ox O2 Del Method 97.8 F 60 16 142/95 H 97 Room Air 10/03/24 05:21 10/03/24 07:46 10/03/24 05:21 10/03/24 05:21 10/03/24 05:21 10/03/24 07:46 Oxygen Delivery Method Room Air Weight: 145 lb 11.609 oz Body Mass Index (BMI) 20.9 Intake & Output: Intake and Output for Last 24 Hours 10/01/24 10/02/24 10/03/24 23:59 23:59 23:59 Intake Total 1000 / 1000 1084.58 / 1204.58 1273 / 1273 Output Total 250 / 400 550 / 550 Balance 1000 / 1000 834.58 / 804.58 723 / 723 Medical Nutrition Assessment Dietitian: Malnutrition Criteria Met Start: 10/02/24 15:27 Freq: Status: Active Protocol: Document 10/02/24 15:27 SB (Rec: 10/02/24 15:27 SB [id number]) Nutrition Malnutrition Evidence of Malnutrition Exists Yes Malnutrition (severe): Chronic Evidenced By Weight Loss (Severe),Physical Changes (Moderate) Clinical Problem Chronic Disease or Condition Related Malnutrition Etiology severe related to increased energy expenditure and pancreatic/colon cancer Signs/Symptoms as evidenced by 19% weight loss x 3-4 months and moderate wasting in clavicle region. Status Active Problem Recommendation Dietitian Recommendations/Changes Recommend advanced diet as tolerated to regular diet. As diet is advanced, will order 240ml strawberry ensure plus high protein TID with meals. Will monitor weight, as available. Reviewed and approved by Kanchan Ryan RD, LD. Lab / Micro Data 10/03/24 04:15 10/03/24 04:15 Labs: Laboratory Results - last 24 hr 10/02/24 08:10: Lactic Acid 1.0 10/03/24 04:15: WBC 7.1, RBC 4.14 L, Hgb 12.1 L, Hct 37.6 L, MCV 90.8, MCH 29.2, MCHC 32.2, RDW Std Deviation 54.1 H, RDW Coeff of Soha 16.1 H, Plt Count 344, MPV 9.4, Immature Gran % (Auto) 0.300, Neut % (Auto) 59.2, Lymph % (Auto) 26.0, [place] % (Auto) 9.6, Eos % (Auto) 4.1, Baso % (Auto) 0.8, Absolute Neuts (auto) 4.2, Absolute Lymphs (auto) 1.85, Nucleated RBC % 0, Sodium 141, Potassium 3.9, C hloride 109 H, Carbon Dioxide 27.0, Anion Gap 5, BUN 18, Creatinine 0.48 L, Estim Creat Clear Calc 170.22, Est GFR (MDRD) Af Amer 234, Est GFR (MDRD) Non-Af 193, BUN/Creatinine Ratio 37.2 H, Glucose 83, Calcium 8.6, Total Bilirubin 1.90 H, AST 23, ALT 37, Alkaline Phosphatase 137 H, Total Protein 6.2 L, Albumin 2.8 L, Globulin 3.4, Albumin/Globulin Ratio 0.8 L Physical Exam Const oriented x3 and no apparent distress Resp normal respiratory effort Cardio regular rate GI soft to palpation and non-tender Inspection: Negative for abdominal distention Assessment & Plan Assessment/Plan (1) Small bowel obstruction: (2) Colon cancer: (3) Pancreatic cancer: PLAN: Plan Still awaiting transfer bed. Will plan to check KUB. Would not plan to remove NG tube completely as this is very likely still have obstructive issues in the near future due to the mass but would consider clamping it and let him try some Ensure clear or Ensure high- protein and if the pain does come back then we can just have the NG back up to suction?depending on KUB and timing of transfer. Nga Ventura M.D. Pager: [phone] [facility] [address] [place] [address], [facility], [address] [place] [address] Office: [phone] Charges/Coding Visit Charges Inpatient E&M: 39679 Subs Hosp L2
--- NOTE | 2024-10-03 08:55 | RAD_ITS ---
HISTORY: SBO. TECHNIQUE: XR Abdomen 1 View. COMPARISON: 10/01/2024. FINDINGS: BOWEL GAS PATTERN: Nasogastric tube tip in the left upper quadrant in the region of the stomach. Mildly dilated small bowel loops in the left upper quadrant. FREE AIR: Not assessed on supine view. CALCIFICATIONS: No abnormal calcifications observed. BONES: Unremarkable. SOFT TISSUES: Visualized lung bases clear. Biliary stent with intrahepatic pneumobilia noted RAD/Abdomen Single View (Portable) IMPRESSION: Satisfactory appearance of nasogastric tube. Small bowel obstruction. Biliary stent with pneumobilia. Electronically Signed: Marisa Arvizu MD at 11:46 EDT ,
[2024-10-03 09:52] VITALS: BP 125/80; PULSE 60; RESP 18; TEMP 36.5; O2SAT 100
[2024-10-03] MEDS: Pantoprazole Sodium 40 MG in 0.9% Normal Saline (100mL MB+) 100 ML 330 MG IV (09:58)
[2024-10-03] MEDS: 0.9% Saline Lock 10 ML Syringe IV ×2 (09:59→19:12)
[2024-10-03] MEDS: Enoxaparin 40 MG/0.4 ML Syringe SC (10:00)
[2024-10-03] MEDS: Ensure Clear 120 ML Liquid PO ×2 (10:10→14:05)
--- NOTE | 2024-10-03 12:00 | PN_ITS ---
Subjective Subjective Patient seen and examined. He feels much better today. He says abdominal pain is improved and he has passed gas and had a bowel movement. Review of systems otherwise negative. Objective Data Objective Data Vital Signs: Vital Signs Temp Pulse Resp BP Pulse Ox O2 Del Method 97.7 F L 60 18 125/80 H 100 Room Air 10/03/24 09:52 10/03/24 09:52 10/03/24 09:52 10/03/24 09:52 10/03/24 09:52 10/03/24 09:52 Oxygen Delivery Method Room Air Weight: 145 lb 11.609 oz Body Mass Index (BMI) 20.9 Intake & Output: Intake and Output for Last 24 Hours 10/01/24 10/02/24 10/03/24 23:59 23:59 23:59 Intake Total 1000 / 1000 1084.58 / 1204.58 1416 / 1416 Output Total 250 / 400 600 / 600 Balance 1000 / 1000 834.58 / 804.58 816 / 816 Medical Nutrition Assessment Dietitian: Malnutrition Criteria Met Start: 10/02/24 15:27 Freq: Status: Active Protocol: Document 10/02/24 15:27 SB (Rec: 10/02/24 15:27 SB [id number]) Nutrition Malnutrition Evidence of Malnutrition Exists Yes Malnutrition (severe): Chronic Evidenced By Weight Loss (Severe),Physical Changes (Moderate) Clinical Problem Chronic Disease or Condition Related Malnutrition Etiology severe related to increased energy expenditure and pancreatic/colon cancer Signs/Symptoms as evidenced by 19% weight loss x 3-4 months and moderate wasting in clavicle region. Status Active Problem Recommendation Dietitian Recommendations/Changes Recommend advanced diet as tolerated to regular diet. As diet is advanced, will order 240ml strawberry ensure plus high protein TID with meals. Will monitor weight, as available. Reviewed and approved by Kanchan Ryan, MITRA, LD. Lab / Micro Data 10/03/24 04:15 10/03/24 04:15 Labs: Laboratory Results - last 24 hr 10/03/24 04:15: WBC 7.1, RBC 4.14 L, Hgb 12.1 L, Hct 37.6 L, MCV 90.8, MCH 29.2, MCHC 32.2, RDW Std Deviation 54.1 H, RDW Coeff of Soha 16.1 H, Plt Count 344, MPV 9.4, Immature Gran % (Auto) 0.300, Neut % (Auto) 59.2, Lymph % (Auto) 26.0, [place] % (Auto) 9.6, Eos % (Auto) 4.1, Baso % (Auto) 0.8, Absolute Neuts (auto) 4.2, Absolute Lymphs (auto) 1.85, Nucleated RBC % 0, Sodium 141, Potassium 3.9, C hloride 109 H, Carbon Dioxide 27.0, Anion Gap 5, BUN 18, Creatinine 0.48 L, Estim Creat Clear Calc 170.22, Est GFR (MDRD) Af Amer 234, Est GFR (MDRD) Non-Af 193, BUN/Creatinine Ratio 37.2 H, Glucose 83, Calcium 8.6, Total Bilirubin 1.90 H, AST 23, ALT 37, Alkaline Phosphatase 137 H, Total Protein 6.2 L, Albumin 2.8 L, Globulin 3.4, Albumin/Globulin Ratio 0.8 L Radiography Diagnostic Testing: Radiology Impression KUB X-Ray 10/03/24 08:55 IMPRESSION: Satisfactory appearance of nasogastric tube. Small bowel obstruction. Biliary stent with pneumobilia. Electronically Signed: Marisa Arvizu MD at 11:46 EDT Reading Location ID and State: [facility] / [place] Tel , Service support , Physical Exam Const alert, oriented x3 and no apparent distress General Appearance: cooperative HEENT normocephalic, head/scalp atraumatic and oropharynx normal Eyes PERRL, EOMs intact bilaterally and conjunctivae normal Neck no lymphadenopathy and supple Resp normal respiratory effort, normal air movement, no retractions and clear to auscultation bilaterally Cardio regular rate, regular rhythm, S1 normal heart sound, S2 normal heart sound and no murmurs GI normal to inspection, nondistended, normoactive bowel sounds, soft to palpation, non-tender and non-distended GI Narrative: NG tube in situ draining bilious fluid. Extremity normal to inspection, full ROM, normal capillary refill and no clubbing, cyanosis or edema General Extremity: no tenderness to palpation of joints or extremities Neuro oriented x3, CN's II-XII intact bilaterally and no focal motor deficits Sensorium / Orientation: awake and alert Motor Exam: strength 5/5 throughout and general weakness Psych thought process normal, cooperative and affect normal Appearance: appropriate Assessment & Plan Assessment/Plan (1) Small bowel obstruction: (2) Colon cancer: (3) Pancreatic cancer: PLAN: Plan #Small bowel obstruction * Admitted with a complaint of abdominal pain. He has not passed gas or had a bowel movement since his symptoms started the day prior admission. * He was diagnosed with colon and pancreatic cancer about 3 weeks ago and has had a stent placed in the common bile duct. He is here to start chemotherapy. * CT of the abdomen and pelvis done admission showed a small bowel obstruction generally related to an amorphous locally infiltrating probably malignant mass in the ileocecal region and additional probable 5.1 cm mass of the pancreatic head with a common bile duct and a grossly satisfactory position * He has been accepted at [facility] Main [facility] but there is no bed availability. * Patient now passing gas and says he had a bowel movement today. General surgery on board. KUB x-ray today showed small bowel obstruction still with satisfactory appearance of NG tube and biliary stent pneumobilia * Continue keeping n.p.o. and hydrated with IV fluids. * Awaiting transfer to [facility] pending bed availability. * * #Colon and pancreatic cancer * recently diagnosed * follows with Dr Cano. Has had a stent inserted in the common bile duct. * awaiting transfer to [facility] * #Elevated liver enzymes: * Total bilirubin was 2.3 yesterday and is 1.9 today. * ALP was 170 but is now 137. * This likely due to the pancreatic and colon cancer. * Will monitor. * #Nicotine dependence: says he quit about a month ago. Counseled to continue abstinence from nicotine DVT prophylaxis: lovenox Code status: full code * Charges/Coding Visit Charges Inpatient E&M: 18579 Subs Hosp L2
[2024-10-03 14:03] VITALS: BP 131/80; PULSE 53; RESP 18; TEMP 36.6; O2SAT 99
[2024-10-03 22:15] VITALS: BP 138/86; PULSE 56; RESP 16; TEMP 36.7; O2SAT 100
[2024-10-04 02:55] VITALS: BP 145/88; PULSE 57; RESP 16; TEMP 36.7; O2SAT 100
[2024-10-04 05:46] LABS: Absolute Lymphocyte Count 1.73 X10^3/uL (0.83-4.51); Absolute Neutrophil Count 5.5 X10^3/uL (2.0-7.7); Basophil# 0.05 X10^3/uL; Basophil% 0.6 % (0-1); Eosinophil# 0.34 X10^3/uL; Hematocrit 34.9 % (40-54); Hemoglobin 11.6 g/dL (13.0-16.5); Lymphocyte # 1.73 X10^3/ul (0.83-4.51); Lymphocyte % 20.5 % (19-41); Mean Corp Hgb Conc 33.2 g/dL (32-36); Mean Corpuscular Hgb 29.7 pg (27.0-32.0); Mean Corpuscular Volume 89.3 fL (80-94); Mean Platelet Vol. 9.9 fl (6.2-12.0); Monocyte# 0.82 X10^3/uL; Monocyte% 9.7 % (0-10); NRBC Flagged by Analyzer 0 % (0-5); Neutrophil # 5.49 X10^3/uL (2.7-7.7); Platelet Count 317 K/mm3 (150-450); RBC Distribution Width CV 15.7 % (11.6-14.6); RBC Distribution Width SD 51.4 fl (35.1-43.9); Red Blood Count 3.91 M/mm3 (4.6-6.2); White Blood Count 8.5 K/mm3 (4.4-11.0)
[2024-10-04 06:13] LABS: ALB/GLOB Ratio 0.8 RATIO (0.9-2.4); AST(SGOT) 25 U/L (15-37); Alanine Aminotransfer ALT/SGPT 32 U/L (16-61); Albumin, Serum 2.8 g/dL (3.2-5.0); Alkaline Phosphatase 126 U/L (45-117); Anion Gap 5 (5-15); BUN 11 mg/dL (7-18); BUN/Creat Ratio 23.1 RATIO (10-20); Calcium,Total 8.8 mg/dL (8.5-10.1); Chloride 105 mmol/L (98-107); Creatinine, Serum 0.48 mg/dL (0.70-1.30); EST Glomerular Filtration Rate 197 mL/min (>60); Est Glom Filt Rate - Afr Amer 238 mL/min (>60); Estimated Creatinine Clearance 170.22 ml/min; Globulin 3.3 g/dL (2.2-4.2); Glucose 90 mg/dL (74-106); Potassium 3.5 mmol/L (3.5-5.1); Protein, Total 6.1 g/dL (6.4-8.2); Sodium Level 139 mmol/L (136-145)
--- NOTE | 2024-10-04 08:35 | PCA ---
Addendum entered by Jyoti Cochran 10/04/24 08:50: placed a call to physicians ambulance to arrange transport ETA 10am patient and care team aware Original Note: Bed assignment for [facility] H60 Bed 41 nurse to nurse [phone] Dr. Gray accepting physician
--- NOTE | 2024-10-04 08:46 | PN.SURG_ITS ---
Subjective Subjective Patient just received transfer bed. Patient was able to tolerate some clears with NG in place?patient did have 600 out recorded yesterday minimal drainage in the container this morning Objective Data Objective Data Vital Signs: Vital Signs Temp Pulse Resp BP Pulse Ox O2 Del Method 98.0 F 57 L 16 145/88 H 100 Room Air 10/04/24 02:55 10/04/24 02:55 10/04/24 02:55 10/04/24 02:55 10/04/24 02:55 10/04/24 02:55 Oxygen Delivery Method Room Air Weight: 145 lb 11.609 oz Body Mass Index (BMI) 20.9 Intake & Output: Intake and Output for Last 24 Hours 10/02/24 10/03/24 10/04/24 23:59 23:59 22:59 Intake Total 1084.58 / 1204.58 2797.67 / 2797.67 1832.08 / 1832.08 Output Total 250 / 400 1200 / 1200 Balance 834.58 / 804.58 1597.67 / 1597.67 1832.08 / 1832.08 Medical Nutrition Assessment Dietitian: Malnutrition Criteria Met Start: 10/02/24 15:27 Freq: Status: Active Protocol: Document 10/02/24 15:27 SB (Rec: 10/02/24 15:27 SB [id number]) Nutrition Malnutrition Evidence of Malnutrition Exists Yes Malnutrition (severe): Chronic Evidenced By Weight Loss (Severe),Physical Changes (Moderate) Clinical Problem Chronic Disease or Condition Related Malnutrition Etiology severe related to increased energy expenditure and pancreatic/colon cancer Signs/Symptoms as evidenced by 19% weight loss x 3-4 months and moderate wasting in clavicle region. Status Active Problem Recommendation Dietitian Recommendations/Changes Recommend advanced diet as tolerated to regular diet. As diet is advanced, will order 240ml strawberry ensure plus high protein TID with meals. Will monitor weight, as available. Reviewed and approved by Kanchan Ryan RD, LD. Lab / Micro Data 10/04/24 04:40 10/04/24 04:40 Labs: Laboratory Results - last 24 hr 10/04/24 04:40: WBC 8.5, RBC 3.91 L, Hgb 11.6 L, Hct 34.9 L, MCV 89.3, MCH 29.7, MCHC 33.2, RDW Std Deviation 51.4 H, RDW Coeff of Soha 15.7 H, Plt Count 317, MPV 9.9, Immature Gran % (Auto) 0.200, Neut % (Auto) 65.0, Lymph % (Auto) 20.5, [place] % (Auto) 9.7, Eos % (Auto) 4.0, Baso % (Auto) 0.6, Absolute Neuts (auto) 5.5, Absolute Lymphs (auto) 1.73, Nucleated RBC % 0, Sodium 139, Potassium 3.5, Chloride 105, Carbon Dioxide 28.0, Anion Gap 5, BUN 11, Creatinine 0.48 L, Estim Creat Clear Calc 170.22, Est GFR (MDRD) Af Amer 238, Est GFR (MDRD) Non-Af 197, BUN/Creatinine Ratio 23.1 H, Glucose 90, Calcium 8.8, Total Bilirubin 1.70 H, AST 25, ALT 32, Alkaline Phosphatase 126 H, Total Protein 6.1 L, Albumin 2.8 L, Globulin 3.3, Albumin/Globulin Ratio 0.8 L Radiography Diagnostic Testing: Radiology Impression KUB X-Ray 10/03/24 08:55 IMPRESSION: Satisfactory appearance of nasogastric tube. Small bowel obstruction. Biliary stent with pneumobilia. Electronically Signed: Marisa Arvizu MD at 11:46 EDT Reading Location ID and State: [facility] / [place] Tel , Service support , Physical Exam Const oriented x3 and no apparent distress Resp normal respiratory effort Cardio regular rate GI soft to palpation and non-tender Inspection: Negative for abdominal distention Assessment & Plan Assessment/Plan (1) Small bowel obstruction: (2) Colon cancer: (3) Pancreatic cancer: PLAN: Plan Patient did get a transfer bed today. Leaving about 10 AM. Continue NG/IV fluids. Nga Ventura M.D. Pager: [phone] [facility] [address] [place] [address], Outpatient [facility], [address] [place] [address] Office: [phone]
[2024-10-04] MEDS: Ensure Clear 120 ML Liquid PO (08:53)
[2024-10-04 08:55] VITALS: BP 161/91; PULSE 55; RESP 16; TEMP 36.6; O2SAT 100
--- NOTE | 2024-10-04 09:09 | DS.PCM_ITS ---
Providers Date of Admission: 10/02/24 Date of Discharge: 10/04/24 Primary Care Physician: Dr. Erick Dias, DO Consultations 10/02/24 10:55 Consult: General Surgery Routine Consulting Provider: Nga Ventura Reason for Consult: small bowel obstruction EMERGENT Consult: No MD Notified: Yes Date Notified: 10/02/24 Time Notified: 10:28 Method of Notification: Verbal Reason For Visit: SMALL BOWEL OBSTRUCTION Diagnosis Discharge Diagnosis (1) Small bowel obstruction: Status: Acute Code(s): K56.609 - Unspecified intestinal obstruction, unspecified as to partial versus complete obstruction (2) Colon cancer: Status: Acute Code(s): C18.9 - Malignant neoplasm of colon, unspecified (3) Pancreatic cancer: Status: Acute Code(s): C25.9 - Malignant neoplasm of pancreas, unspecified Plan #Small bowel obstruction * Admitted with a complaint of abdominal pain. He has not passed gas or had a bowel movement since his symptoms started the day prior admission. * He was diagnosed with colon and pancreatic cancer about 3 weeks ago and has had a stent placed in the common bile duct. He is here to start chemotherapy. * CT of the abdomen and pelvis done admission showed a small bowel obstruction generally related to an amorphous locally infiltrating probably malignant mass in the ileocecal region and additional probable 5.1 cm mass of the pancreatic head with a common bile duct and a grossly satisfactory position * He has been accepted at [facility] Main campus but there is no bed availability. * Patient now passing gas and says he had a bowel movement today. General surgery on board. KUB x-ray today showed small bowel obstruction still with satisfactory appearance of NG tube and biliary stent pneumobilia * Continue keeping n.p.o. and hydrated with IV fluids. * Awaiting transfer to [facility] pending bed availability. * * #Colon and pancreatic cancer * recently diagnosed * follows with Dr Dias. Has had a stent inserted in the common bile duct. * awaiting transfer to [facility] * #Elevated liver enzymes: * Total bilirubin was 2.3 yesterday and is 1.9 today. * ALP was 170 but is now 137. * This likely due to the pancreatic and colon cancer. * Will monitor. * #Nicotine dependence: says he quit about a month ago. Counseled to continue abstinence from nicotine DVT prophylaxis: lovenox Code status: full code * Medications at Discharge Home Medications wybroz-ukiraqtw-cartpde 36,000-114,000-180,000 unit capsule,delay rel (Creon) 2 cap PO TID Food breakdown 10/01/24 Hospital Course Operations None Procedures None Summary of Care Provided Minutes Spent on Discharge: 55 Hospital Course: ISABELLE WILEY, is a 49 M with a PMH as outlined including pancreatic cancer and recently had a stent placed who presented to the ED On 10/02/2024 with a complaint of abdominal pain which started on the day of admission. Abdominal pain was diffuse and cramping, with associated nausea and vomiting. He had a bowel movement before the symptoms started but has not passed gas or had a BM since. Review of systems is otherwise negative. He has never had such symptoms before. He was diagnosed with pancreatic and colon cancer 3 weeks ago and follows up with Dr Dias. He says he is yet to start chemotherapy. Vitals in the ED were BP of 107/76, SC of 78, RR of 20, temp of 98.9F and oxygen sats of 95% on room air. CBC showed Hb of 13.3, wbc of 7.7 and platelets of 430. Chemistry showed sodium of 140, potassium of 4.2 and Cr of 0.51. Total bilirubin of 2.3. CT abdomen and pelvis showed small bowel obstruction apparently related to an amorphous, locally infiltrating probably malignant mass of the ileocecal region and an additional. probable 5.1cm mass of th pancreatic head, with the common bile duct stent in a grossly satisfactory position. His oncologist recommended transfer to [facility] where he was accepted pending bed availability. After being down in the ED for about 18 hours, he was admitted to the hospitalist service with consult to general surgery also awaiting transfer to [facility]. His hospital course was not complicated. He started having bowel movements and passing gas. NG tube was placed to suction and general surgery was on board. Repeat abdominal x-rays still did show that small bowel obstruction. Patient eventually got a bed at [facility] on 10/04/2024 and was transferred to [facility]. Patient was seen and examined prior to transfer. He had no active complaints. Review of systems otherwise negative. Labs and vitals reviewed. Physical Exam Const alert, oriented x3 and no apparent distress General Appearance: cooperative and comfortable Orientation / Consciousness: awake Exam Limitations: no limitations HEENT normocephalic, head/scalp atraumatic, hearing grossly normal bilaterally and oropharynx normal Mouth: oral and palatal mucosa normal Eyes PERRL, EOMs intact bilaterally and conjunctivae normal Neck no lymphadenopathy and supple Resp normal respiratory effort, normal air movement, no retractions and clear to auscultation bilaterally Cardio regular rate, regular rhythm, S1 normal heart sound, S2 normal heart sound and no murmurs GI normal to inspection, nondistended, normoactive bowel sounds, soft to palpation, non-tender and non-distended GI Narrative: NG tube in situ Extremity normal to inspection, full ROM, normal capillary refill and no clubbing, cyanosis or edema General Extremity: no tenderness to palpation of joints or extremities Neuro oriented x3, CN's II-XII intact bilaterally and no focal motor deficits Sensorium / Orientation: awake and alert Motor Exam: strength 5/5 throughout and general weakness Psych thought process normal, cooperative and affect normal Appearance: appropriate Medical Records Data Medical Nutrition Assessment Dietitian: Malnutrition Criteria Met Start: 10/02/24 15:27 Freq: Status: Active Protocol: Document 10/02/24 15:27 SB (Rec: 10/02/24 15:27 SB [id number]) Nutrition Malnutrition Evidence of Malnutrition Exists Yes Malnutrition (severe): Chronic Evidenced By Weight Loss (Severe),Physical Changes (Moderate) Clinical Problem Chronic Disease or Condition Related Malnutrition Etiology severe related to increased energy expenditure and pancreatic/colon cancer Signs/Symptoms as evidenced by 19% weight loss x 3-4 months and moderate wasting in clavicle region. Status Active Problem Recommendation Dietitian Recommendations/Changes Recommend advanced diet as tolerated to regular diet. As diet is advanced, will order 240ml strawberry ensure plus high protein TID with meals. Will monitor weight, as available. Reviewed and approved by Kanchan Ryan, MITRA, LD. Weight / BMI Weight Weight: 145 lb 11.609 oz Body Mass Index (BMI) 20.9 ABG / Lab / Microbiology Data 10/04/24 04:40 10/04/24 04:40 Laboratory: Laboratory Results - last 24 hr 10/04/24 04:40: WBC 8.5, RBC 3.91 L, Hgb 11.6 L, Hct 34.9 L, MCV 89.3, MCH 29.7, MCHC 33.2, RDW Std Deviation 51.4 H, RDW Coeff of Soha 15.7 H, Plt Count 317, MPV 9.9, Immature Gran % (Auto) 0.200, Neut % (Auto) 65.0, Lymph % (Auto) 20.5, [place] % (Auto) 9.7, Eos % (Auto) 4.0, Baso % (Auto) 0.6, Absolute Neuts (auto) 5.5, Absolute Lymphs (auto) 1.73, Nucleated RBC % 0, Sodium 139, Potassium 3.5, Chloride 105, Carbon Dioxide 28.0, Anion Gap 5, BUN 11, Creatinine 0.48 L, Estim Creat Clear Calc 170.22, Est GFR (MDRD) Af Amer 238, Est GFR (MDRD) Non-Af 197, BUN/Creatinine Ratio 23.1 H, Glucose 90, Calcium 8.8, Total Bilirubin 1.70 H, AST 25, ALT 32, Alkaline Phosphatase 126 H, Total Protein 6.1 L, Albumin 2.8 L, Globulin 3.3, Albumin/Globulin Ratio 0.8 L Radiography Diagnostic Testing: Radiology Impression KUB X-Ray 10/03/24 08:55 IMPRESSION: Satisfactory appearance of nasogastric tube. Small bowel obstruction. Biliary stent with pneumobilia. Electronically Signed: Marisa Arvizu MD at 11:46 EDT , Meaningful Use Info Meaningful Use Meaningful Use Diagnoses (Choose all that apply): None applicable Ischemic Stroke Statin Dosing Therapy Reference: STATIN DOSE THERAPY REFERENCE: * Patients > 75 years receive moderate or high dose statin therapy. * Patients 75 years or YOUNGER should receive HIGH intensity statin dose unless contraindicated. You will be required to document reason for non-treatment if statin daily dose does not meet guidelines. HIGH DOSE STATIN THERAPY DAILY Atorvastatin > than or = to 40 mg Rosuvastatin > than or = to 20 mg Amlodipine + Atorvastatin > than or = to 2.5/40 mg Ezetimibe + Simvastatin 10/80 mg Simvastatin 80mg Discharge Plan Admission Admit Date/Time: 10/02/24 10:22 Primary Reason for Your Visit: small bowel obstruction Attending Provider: Cassie Feliciano Primary Care Provider: Erick Dias Consulting Providers: Nga Ventura Instructions Patient Instructions: Small Bowel Obstruction Discharge Orders/Prescriptions Prescriptions: No Action Creon 36,000-114,000- 180,000 unit capsule,delayed release(DR/EC) 2 cap PO TID Referrals / Follow Up: Erick Dias DO [Primary Care Provider] - Disposition Disposition (needs filled in before D/C Order can be placed): Acute Care Hospital Charges/Coding Visit Charges Inpatient E&M: 22231 Disch Hosp >30min
== END 2024-10-04 10:24 | disposition short-term general hospital (02) | DRG 389 ==
LOC: ED 10-02 10:23 → MS3 10-02 10:36
PROVIDERS: Emergency Medicine; Admitting Provider Student in an Organized Health Care Education/Training Program; Emergency Provider Emergency Medicine; PCP Internal Medicine Hematology & Oncology; Visit Provider Student in an Organized Health Care Education/Training Program
DX: K56.609 Unspecified intestinal obstruction, unspecified as to partial versus complete obstruction (principal); E44.0 Moderate protein-calorie malnutrition; C18.9 Malignant neoplasm of colon, unspecified; C25.9 Malignant neoplasm of pancreas, unspecified; Z87.891 Personal history of nicotine dependence; Z68.21 Body mass index [BMI] 21.0-21.9, adult
CPT/HCPCS: 36415; 74018; 74177; 80053; 83605; 83690; 85025; 99285; Q9967; A4216; J2405

== ENCOUNTER 2024-11-03 22:19 | Emergency (ER) | payer OTHER, SELFPAY ==
[2024-11-03 22:19] VITALS: BP 131/87; PULSE 104; RESP 17; TEMP 37.1; O2SAT 99; BMI 21.2
[2024-11-03 22:22] VITALS: BP 129/72; PULSE 87; RESP 19; TEMP 37.2; O2SAT 98
--- NOTE | 2024-11-03 22:37 | EX.ED.DYSGE1 ---
HPI History of Present Illness Chief Complaint: Fever Informant: patient and spouse/S.O. Narrative Narrative: 49-year-old male presenting to the emergency room for the evaluation of fever. Patient has a history of pancreatic and colon cancer is currently being followed with Dr. Cano at [facility] oncology. He is supposed to have his next chemotherapy appointment tomorrow. The patient had a telehealth visit today. History of hypertension he has been experiencing intermittent fevers today. spoke to his recommended he come to emergency department. Dr. Cano called and spoke with minimal [facility] prior to the patient's arrival. Patient notes that he began to lose his voice on Saturday. He denies any sore throat cough rhinorrhea. He has been eating and drinking normally. He notes that his port appears a little red. It was placed a week ago. It was accessed today. Denies any abdominal discomfort notes his incision is healing appropriately. Patient's notes that they have 1 daughter had a viral illness last week. He has not taken anything to mask a fever. He states the fever typically breaks on the phone. Patient really suddenly had a white count of 20,000 and and was noted to have received growth factor. [facility] Medical History (Updated 11/04/24 @ 00:[address] Lg June, DO) Smoker Colon cancer Pancreatic cancer Small bowel obstruction Pancreatic cancer Colon cancer Home Medications ?Medication ?Instructions ?Recorded ?Last Taken ?Type sjiigk-eiwotixc-icagsja 2 cap PO TID Food breakdown 10/01/24 10/01/24 History 36,000-114,000-180,000 unit capsule,delay rel (Creon) dexamethasone 4 mg tablet mg PO 11/03/24 Unknown History lidocaine-prilocaine 2.5 %-2.5 % topical 11/03/24 Unknown History topical cream olanzapine 5 mg tablet 5 mg PO QHS 11/03/24 Unknown History pantoprazole 40 mg tablet,delayed 40 mg PO DAILY 11/03/24 Unknown History release prochlorperazine maleate 10 mg 10 mg PO Q6H PRN PRN nausea and 11/03/24 Unknown History tablet vomiting Allergy/AdvReac Type Severity Reaction Status Date / Time No Known Allergies Allergy Verified 11/03/24 22:20 Surgical History (Updated 11/03/24 @ 23:00 by Raisa Fernandez) History of appendectomy History of cholecystectomy Social History Smoking Status: Current every day smoker tobacco type: cigars and smokeless tobacco ROS ROS ED Constitutional Constitutional ED: Reports fever(s) and sweats; Denies chills or weight loss Eyes Eyes: Denies change in vision or diplopia ENT ENT ED: Reports other Details: Hoarse voice ; Denies ear pain, rhinorrhea or sore throat Cardiovascular Cardiovascular: Denies chest pain, orthopnea, palpitations or racing heartbeat Respiratory/Chest Respiratory/Chest: Denies cough, dyspnea or orthopnea Gastrointestinal Gastrointestinal: Denies abdominal pain, diarrhea, nausea or vomiting Genitourinary Genitourinary ED: Denies dysuria, hematuria or urinary frequency Musculoskeletal Musculoskeletal: Denies arthralgias or myalgias Integumentary Denies abscess or rash Neurologic Neurologic: Denies headache(s) or weakness Psychiatric Psychiatric: Denies anxiety, depression, suicidal ideation or suicidal thoughts Endocrine Endocrinology: Denies polydipsia, polyphagia or polyuria Allergic/Immunologic Allergic/Immunologic ED: Denies mouth swelling, tongue swelling or urticaria EXAM Physical Exam Narrative Exam Narrative: Patient does have a hoarse voice. Const Vital Signs: 11/03/24 22:19 11/03/24 22:22 11/03/24 22:32 Temperature 98.7 F 98.9 F Temperature Source Oral Oral Pulse Rate 104 H 87 Respiratory Rate 17 19 H Respiratory Effort Normal Respiratory Pattern Normal Blood Pressure 131/87 H 129/72 H Blood Pressure Mean 101 91 Pulse Ox 99 98 Oxygen Delivery Method Room Air Room Air 11/03/24 23:19 11/03/24 23:22 11/04/24 00:00 Temperature 98.9 F 98.9 F 97.7 F L Temperature Source Oral Oral Oral Pulse Rate 89 85 78 Respiratory Rate 19 H 18 19 H Respiratory Effort Respiratory Pattern Blood Pressure 113/74 113/74 109/75 Blood Pressure Mean 87 87 86 Pulse Ox 98 98 97 Oxygen Delivery Method Room Air Room Air Room Air Positive well nourished and well developed General Appearance ED: well developed and NAD HEENT Reports normocephalic, head/scalp atraumatic and moist mucous membranes Eyes PERRL and EOMs intact bilaterally Neck no lymphadenopathy, supple and no JVD Chest Wall Chest Narrative: Port site shows some dark red around the site but it is not warm or fire engine red. It is not tender to palpation. Resp normal respiratory effort and clear to auscultation bilaterally Cardio regular rate, regular rhythm and no murmurs Rate: tachycardic GI normal to inspection, nondistended, normoactive bowel sounds and non-tender Palpation: soft Back/Spine no CVA tenderness and normal ROM Extremity normal to inspection General Extremety ED: Negative for edema General Extremity: Negative for edema Neuro oriented x3 and CN's II-XII intact bilaterally Sensorium / Orientation: alert Motor Exam: strength 5/5 throughout Psych mental status grossly normal Mood & Affect: Negative for depressed or tearful Skin no rashes or lesions noted and no wounds MDM MDM MDM Narrative Medical decision making narrative: Differential diagnosis includes but not limited to viral syndrome septicemia/bacteremia viral pharyngitis pneumonia organ dysfunction Patient's white count 16.8 82.1% neutrophils 6.1% lymphocytes. Normal coags. BMP shows a glucose of 160 CO2 27 anion gap 9 BUN 10 creatinine 0.84. LFTs show a total bilirubin 0.50 direct bilirubin 0.33 AST of 62 and ALT of 86 slightly elevated compared to prior urinalysis with no overt infection. His lactic acid is curiously elevated at 3.5. He does not appear volume depleted. Without treatment heart rate is down to 85 with blood pressure of 113/74. My independent interpretation of the chest x-ray is no acute process. COVID influenza and RSV swabs are negative. Blood cultures were obtained. A repeat lactic acid was obtained and is normal. Patient clinically other than his hoarse voice appears well. He has an appointment with his oncologist later today. Using shared decision making we agreed that the patient can be discharged home to follow-up there and await blood cultures. Patient will return if worsening or concerns History & Record Review Discussion w/independent historian: Patient and Significant other Additional record(s) reviewed:: Prior inpatient record, Prior ED visit and Prior labs Lab Data Attestation: I reviewed the patient's lab results. Labs: Laboratory Results - last 24 hr 11/03/24 11/03/24 23:05 23:08 WBC 16.8 H RBC 4.54 L Hgb 13.1 Hct 40.5 MCV 89.2 MCH 28.9 MCHC 32.3 RDW Std Deviation 45.4 H RDW Coeff of Soha 14.2 Plt Count 242 MPV 8.9 Immature Gran % (Auto) 4.200 H Neut % (Auto) 82.1 H Lymph % (Auto) 6.1 L [place] % (Auto) 5.7 Eos % (Auto) 1.2 Baso % (Auto) 0.7 Absolute Neuts (auto) 13.8 H Absolute Lymphs (auto) 1.03 Nucleated RBC % 0 PT 13.9 INR 1.1 APTT 29.1 Sodium 136 Potassium 3.8 Chloride 100 Carbon Dioxide 27.0 Anion Gap 9 BUN 10 Creatinine 0.84 Estim Creat Clear Calc 98.65 Est GFR (MDRD) Af Amer 123 Est GFR (MDRD) Non-Af 102 BUN/Creatinine Ratio 11.9 Glucose 160 H Lactic Acid 3.5 H* Calcium 9.4 Total Bilirubin 0.50 Direct Bilirubin 0.33 H AST 62 H ALT 86 H Alkaline Phosphatase 202 H Total Protein 7.5 Albumin 3.4 Globulin 4.1 Urine Color Yellow Urine Clarity Sl. Cloudy Urine pH 6.0 Ur Specific Jerome 1.020 Urine Protein 15 H Urine Glucose (UA) Normal Urine Ketones Negative Urine Occult Blood Negative Urine Nitrite Negative Urine Bilirubin Negative Urine Urobilinogen 1 H Ur Leukocyte Esterase 25 H Urine RBC 0-5 SEEN Urine WBC 0-5 SEEN Ur Squamous Epith Cells 0 SEEN Urine Bacteria RARE Urine Mucus 2+ Radiography Diagnostic Testing: Clinical Impression(s) from Imaging Studies Chest X-Ray 11/03/24 23:05 IMPRESSION: No acute findings in the chest. Electronically Signed: Liang Patterson DO at 23:15 EST , Discharge Plan Triage Chief Complaint: Fever ED Provider: Lg June Dx/Rx/DC Orders Clinical Impression: Acute febrile illness, Pancreatic cancer, Colon cancer Prescriptions: No Action Creon 36,000-114,000- 180,000 unit capsule,delayed release(DR/EC) 2 cap PO TID olanzapine 5 mg tablet 5 mg PO QHS prochlorperazine maleate 10 mg tablet 10 mg PO Q6H PRN PRN (Reason: nausea and vomiting) lidocaine-prilocaine 2.5-2.5 % cream topical pantoprazole 40 mg tablet,delayed release (DR/EC) 40 mg PO DAILY dexamethasone 4 mg tablet PO Primary Care Provider: Care Physician,No Primary Referrals: Care Physician,No Primary [Primary Care Provider] - Print Language: Lithuanian
--- NOTE | 2024-11-03 23:05 | RAD_ITS ---
EXAM: XR CHEST, 1 VIEW CLINICAL INDICATION: fever TECHNIQUE: Frontal view of the chest. COMPARISON: No relevant prior studies available. FINDINGS: LUNGS AND PLEURAL SPACES: No significant abnormality. No consolidation or edema. No pneumothorax. No effusion. HEART: No significant abnormality. Cardiac silhouette not enlarged. MEDIASTINUM: Central airways and mediastinal contour are unremarkable. BONES/JOINTS: No significant abnormality. No acute fracture. SOFT TISSUES: No significant abnormality. TUBES, LINES AND DEVICES: Right-sided chest port. RAD/Chest 1 View (Portable) IMPRESSION: No acute findings in the chest. Electronically Signed: Liang Patterson DO at 23:15 EST ,
[2024-11-03 23:18] LABS: Squamous Epithelial Cells - UA 0 SEEN /hpf (0-5)
[2024-11-03 23:18] LABS: Absolute Lymphocyte Count 1.03 X10^3/uL (0.83-4.51); Absolute Neutrophil Count 13.8 X10^3/uL (2.0-7.7); Basophil# 0.11 X10^3/uL; Basophil% 0.7 % (0-1); Eosinophils% 1.2 % (0-5); Hematocrit 40.5 % (40-54); Hemoglobin 13.1 g/dL (13.0-16.5); Lymphocyte # 1.03 X10^3/ul (0.83-4.51); Lymphocyte % 6.1 % (19-41); Mean Corp Hgb Conc 32.3 g/dL (32-36); Mean Corpuscular Hgb 28.9 pg (27.0-32.0); Mean Corpuscular Volume 89.2 fL (80-94); Mean Platelet Vol. 8.9 fl (6.2-12.0); Monocyte# 0.95 X10^3/uL; Monocyte% 5.7 % (0-10); NRBC Flagged by Analyzer 0 % (0-5); Neutrophil # 13.81 X10^3/uL (2.7-7.7); Neutrophil % 82.1 % (47-70); Platelet Count 242 K/mm3 (150-450); RBC Distribution Width CV 14.2 % (11.6-14.6); RBC Distribution Width SD 45.4 fl (35.1-43.9); Red Blood Count 4.54 M/mm3 (4.6-6.2); White Blood Count 16.8 K/mm3 (4.4-11.0)
[2024-11-03 23:19] VITALS: BP 113/74; PULSE 89; RESP 19; TEMP 37.2; O2SAT 98
[2024-11-03 23:20] LABS: Color, Urine Yellow (Yellow); Glucose, Dipstick Normal (Normal); Ketone-Dipstick Negative (Negative); Leukocyte Esterase-Dipstick 25 /ul (Negative); Nitrite-Dipstick Negative (Negative); Occult Blood-Urine Negative /ul (Negative); Protein-Dipstick 15 mg/dl (Negative); Urine Bilirubin Dipstick Negative (Negative); Urine Clarity Sl. Cloudy (Clear); Urine Urobilinogen 1 mg/dl (Normal)
[2024-11-03 23:22] VITALS: BP 113/74; PULSE 85; RESP 18; TEMP 37.2; O2SAT 98
[2024-11-03 23:32] LABS: International Normalized Ratio 1.1; Prothrombin Time (Protime)PT. 13.9 SECONDS (11.7-14.9)
[2024-11-03 23:33] LABS: Partial Thromboplast Time 29.1 Seconds (24.1-36.2)
[2024-11-03 23:33] LABS: Bacteria RARE /hpf (None Seen); Mucous, Urine 2+ /hpf (<or=2+); Red Blood Cells-Urine 0-5 SEEN /hpf (0-5); White Blood Cells 0-5 SEEN /hpf (0-5)
[2024-11-03 23:37] LABS: AST(SGOT) 62 U/L (15-37); Alanine Aminotransfer ALT/SGPT 86 U/L (16-61); Albumin, Serum 3.4 g/dL (3.2-5.0); Alkaline Phosphatase 202 U/L (45-117); Anion Gap 9 (5-15); BUN 10 mg/dL (7-18); BUN/Creat Ratio 11.9 RATIO (10-20); Bilirubin, Direct 0.33 mg/dL (0.00-0.30); Calcium,Total 9.4 mg/dL (8.5-10.1); Chloride 100 mmol/L (98-107); Creatinine, Serum 0.84 mg/dL (0.70-1.30); EST Glomerular Filtration Rate 102 mL/min (>60); Est Glom Filt Rate - Afr Amer 123 mL/min (>60); Estimated Creatinine Clearance 98.65 ml/min; Globulin 4.1 g/dL (2.2-4.2); Glucose 160 mg/dL (74-106); Potassium 3.8 mmol/L (3.5-5.1); Protein, Total 7.5 g/dL (6.4-8.2); Sodium Level 136 mmol/L (136-145)
[2024-11-03 23:42] LABS: Lactic Acid 3.5 mmol/L (0.4-1.9)
[2024-11-04] VITALS: BP 109/75; PULSE 78; RESP 19; TEMP 36.5; O2SAT 97
[2024-11-04] MEDS: 0.9% Normal Saline (1000mL) 1,000 ML 999 ML IV (00:35)
[2024-11-04 02:28] VITALS: BP 121/82; PULSE 82; RESP 15; TEMP 36.4; O2SAT 98
[2024-11-04 06:29] LABS: Reflex Lactate? Y
[2024-11-04 10:37] LABS: Lactic Acid 1.8 mmol/L (0.4-1.9)
== END 2024-11-04 02:28 | disposition home or self-care (01) ==
LOC: ED 22:43
PROVIDERS: Emergency Provider Emergency Medicine; Visit Provider Emergency Medicine
DX: R50.9 Fever, unspecified (principal); C25.9 Malignant neoplasm of pancreas, unspecified; C18.9 Malignant neoplasm of colon, unspecified; F17.210 Nicotine dependence, cigarettes, uncomplicated; F17.220 Nicotine dependence, chewing tobacco, uncomplicated
CPT/HCPCS: 71045; 80048; 80076; 81001; 83605; 85025; 85610; 85730; 87040; 87631; 99283; A4216